=== PATIENT | female | born 1990 | race Caucasian/White ===

== ENCOUNTER 2018-02-25 01:18 | Emergency (ER) | payer OTHER ==
[~2018-02-25] VITALS: Ht 162.6 cm; Wt 79.4 kg
[2018-02-25 01:25] VITALS: Ht 162.6 cm; Wt 79.4 kg
[2018-02-25 02:11] LABS: UA SPECIFIC GRAVITY >=1.030 (1.005-1.035); microscopic required? YES; urine erythrocyte 1+ (NEGATIVE)
[2018-02-25 02:12] LABS: BASOPHIL % 0.4 % (0-2); PLATELET COUNT 274 x10^3mcL (130-400)
[2018-02-25 02:15] LABS: RED CELL DISTRIBUTION WIDTH 15.3 % (11.5-14.5)
[2018-02-25 02:19] LABS: CALCIUM 8.5 mg/dL (8.5-10.1); CARBON DIOXIDE 22.3 mmol/L (21-32); CHLORIDE SERUM 105 mmol/L (98-107); CREATININE SERUM 0.8 mg/dL (0.6-1.0); GFR1 > 60 mL/min; GLUCOSE SERUM 139 mg/dL (74-106); POTASSIUM SERUM 3.5 mmol/L (3.5-5.1); SODIUM SERUM 140 mmol/L (136-145)
[2018-02-25 02:30] LABS: ALKALINE PHOSPHATASE 98 U/L (46-116); ALT/SGPT 28 U/L (14-59); AST/SGOT 14 U/L (15-37); BILIRUBIN TOTAL 0.17 mg/dL (0.20-1.00); TOTAL PROTEIN, SERUM 7.6 g/dL (6.4-8.2)
[2018-02-25 02:52] LABS: ALBUMIN 3.3 g/dL (3.4-5.0)
[2018-02-25 05:16] VITALS: BP 106/74
== END 2018-02-25 05:16 | disposition home or self-care (01) ==
LOC: ED 01:18
PROVIDERS: Emergency Medicine
DX: N93.9 Abnormal uterine and vaginal bleeding, unspecified (principal)
CPT/HCPCS: 36415

== ENCOUNTER 2019-12-22 21:34 | Emergency (ER) | payer SELFPAY ==
[~2019-12-22] VITALS: Ht 162.6 cm; Wt 86.2 kg
[2019-12-22 21:35] VITALS: Ht 162.6 cm; Wt 86.2 kg
[2019-12-23 00:46] LABS: BASOPHIL % 0.3 % (0-2); PLATELET COUNT 156 x10^3mcL (130-400); RED CELL DISTRIBUTION WIDTH 13.4 % (11.5-14.5)
[2019-12-23 01:22] LABS: CALCIUM 7.7 mg/dL (8.5-10.1); CARBON DIOXIDE 17.9 mmol/L (21-32); CHLORIDE SERUM 101 mmol/L (98-107); CREATININE SERUM 0.6 mg/dL (0.6-1.0); GFR1 > 60 mL/min; GLUCOSE SERUM 93 mg/dL (74-106); POTASSIUM SERUM 3.1 mmol/L (3.5-5.1); SODIUM SERUM 136 mmol/L (136-145)
[2019-12-23 01:26] LABS: ALKALINE PHOSPHATASE 58 U/L (46-116); ALT/SGPT 18 U/L (14-59); AST/SGOT 17 U/L (15-37); BILIRUBIN DIRECT 0.12 mg/dL (0.0-0.2); BILIRUBIN TOTAL 0.3 mg/dL (0.20-1.00); TOTAL PROTEIN, SERUM 6.4 g/dL (6.4-8.2)
[2019-12-23 01:27] LABS: ALBUMIN 2.6 g/dL (3.4-5.0)
[2019-12-23 02:39] VITALS: BP 101/71
== END 2019-12-23 03:13 | disposition home or self-care (01) ==
LOC: ED 21:34
PROVIDERS: Student in an Organized Health Care Education/Training Program
DX: O21.9 Vomiting of pregnancy, unspecified (principal); R80.9 Proteinuria, unspecified; R31.9 Hematuria, unspecified; Z3A.22 22 weeks gestation of pregnancy
CPT/HCPCS: J7030